=== PATIENT | female | born 1970 | race Caucasian/White ===

== ENCOUNTER 2017-02-01 21:14 | Emergency (ER) | payer OTHER ==
--- NOTE | ~2017-02-01 | CT2 ---
[facility] A Service [facility] RADIOLOGY TEXT RESULTS PATIENT: DAYANA WILLETT LOCATION: SED : 72 UNIT #: [id number] AGE: [address]: Patricio Stewart MD SEX: F ORDER DR: [id number] [address] [address] [id number] E MR#: [id number] Acc #: [id number] NAME: DAYANA WILLETT. : 1970 SEX: F STUDY DATE/TIME: 02/01/2017 22:11 UNIT: SED ROOM: STUDY DESCRIPTION: CT Abd and Pelv W Cont Attending Physician: Patricio Stewart M.D. Ordering Physician: Patricio Stewart M.D. Primary Care Physician: No Primary Care Physician MEDICAL IMAGING REPORT This report is preliminary unless electronic signature is present. EXAM CT abdomen and pelvis with contrast INDICATION Left flank and posterior lower left rib pain after a fall today. PROCEDURE Contrast-enhanced CT of the abdomen and pelvis. This CT exam was performed with one or more of the following radiation dose reduction techniques: Automatic exposure control, adjustment of mA and/or kV according to patient size, and iterative reconstruction. COMPARISON None. FINDINGS ABDOMEN WITH CONTRAST: The included lung bases are clear. The liver, spleen, kidneys, adrenal glands, pancreas, and gallbladder unremarkable. The bowel loops are nondilated. Moderately large colonic stool burden. Appendix is nondilated. Appendix is only partially seen. PELVIS WITH CONTRAST: No pelvic mass or fluid. No aggressive appearing bone lesion. IMPRESSION 1. No acute findings in the abdomen or pelvis. 2. Moderately large colonic stool burden. Dictated by... John Martinez M.D. [facility] A Service [facility] RADIOLOGY TEXT RESULTS PATIENT: DAYANA WILLETT LOCATION: SED : 71 UNIT #: [id number] AGE: [address]: Patricio Stewart MD SEX: F ORDER DR: THIS IS AN ELECTRONICALLY VERIFIED REPORT John E. Michelle, M.D. at 02/02/2017 10:28 PM HUNG/tenzin TD: 02/02/2017 08:10 JOB #: [id number] MEDICAL IMAGING REPORT Page 1 of 1
--- NOTE | ~2017-02-01 | CR71 ---
[facility] [place]. [facility] A Service of [facility] RADIOLOGY TEXT RESULTS PATIENT: DAYANA WILLETT LOCATION: SED : 71 UNIT #: [id number] AGE: [address]: Patricio Stewart MD SEX: F ORDER DR: [id number] [address] [address] [id number] E MR#: [id number] Acc #: [id number] NAME: DAYANA WILLETT : 1970 SEX: F STUDY DATE/TIME: 02/01/2017 22:51 UNIT: SED ROOM: STUDY DESCRIPTION: CR Chest Single View Attending Physician: Patricio Stewart M.D. Ordering Physician: Patricio Stewart M.D. Primary Care Physician: Primary Care Physician No MEDICAL IMAGING REPORT This report is preliminary unless electronic signature is present. EXAM Portable chest INDICATION Left flank and posterior chest pain after a fall tonight. PROCEDURE Frontal view of the chest COMPARISON 08/03/2014 FINDINGS Heart size is normal. No dense consolidation, pleural fluid or pneumothorax. IMPRESSION No active process. Dictated by... John Martinez M.D. THIS IS AN ELECTRONICALLY VERIFIED REPORT John Martinez M.D. at 02/02/2017 10:28 PM Primo TD: 02/02/2017 08:03 JOB #: [id number] MEDICAL IMAGING REPORT Page 1 of 1
[2017-02-01 22:11] LABS: BASOPHIL% 0.6 % (0-2.5); EOSINOPHIL# 0.1 X10e3 (0-0.7); HEMATOCRIT 39.7 % (35.0-45.0); HEMOGLOBIN 13.9 gm/dL (12.0-16.0); LYMPHOCYTE# 1.2 X10e3 (1.0-3.5); LYMPHOCYTE% 15.1 % (17.0-45.0); MEAN CELL VOLUME 85.3 FL (83-96); MEAN CORPUSCULAR HEMOGLOBIN 29.9 PG (28-34); MEAN CORPUSCULAR HGB CONC 35.1 g/dL (30-36); MEAN PLATELET VOLUME 7.1 FL (6.5-11.5); MONOCYTE# 0.8 X10e3 (0-1.0); MONOCYTE% 9.8 % (3.0-12.0); NEUTROPHIL# 5.9 X10e3 (1.5-7.1); NEUTROPHIL% 73.5 % (40-75); PLATELET COUNT 287 X10e3 (140-420); RED BLOOD COUNT 4.65 X10e (3.90-5.30); RED CELL DISTRIBUTION WIDTH 12.6 % (11.0-15.5)
[2017-02-01 22:13] LABS: DIFF IND NO
[2017-02-01 22:28] LABS: ALBUMIN SERUM 4.5 g/dL (3.5-5.0); BILIRUBIN, DIRECT 0.2 mg/dL (0.0-0.2); BILIRUBIN,INDIRECT 1.4 mg/dL (0.0-0.9); BILIRUBIN,TOTAL 1.6 mg/dL (0.2-2.0); BUN/CREATININE RATIO 25.71; CALCIUM SERUM 9.4 mg/dL (8.4-10.2); CREATININE SERUM 0.7 mg/dL (0.6-1.4); GLOM FILT RATE Estimated 103.9 mL/min (>60); POTASSIUM 3.8 mmol/L (3.5-5.1); PROTEIN TOTAL SERUM 7.1 g/dL (6.0-8.3)
[2017-02-01 23:18] LABS: URINE SOURCE CLEAN CATCH
[2017-02-01 23:20] LABS: URINE APPEARANCE CLEAR; URINE BILIRUBIN NEG (NEG); URINE BLOOD NEG (NEG); URINE COLOR YELLOW; URINE GLUCOSE NEG (NORM); URINE KETONE 1+ (NEG); URINE LEUKOCYTE ESTERASE NEG (NEG); URINE NITRATE NEG (NEG); URINE PH 7.5 (5-8); URINE PROTEIN NEG (NEG); URINE UROBILINOGEN 0.2 MG/DL (NORM)
[2017-02-01 23:25] LABS: MICRO INDICATED? NO
== END 2017-02-02 00:18 | disposition home or self-care (01) ==
LOC: SED 21:14
PROVIDERS: Emergency Medicine
DX: S39.012A Strain of muscle, fascia and tendon of lower back, initial encounter (principal); S20.212A Contusion of left front wall of thorax, initial encounter; K58.9 Irritable bowel syndrome, unspecified; W18.2XXA Fall in (into) shower or empty bathtub, initial encounter; Y92.009 Unspecified place in unspecified non-institutional (private) residence as the place of occurrence of the external cause
CPT/HCPCS: 36415; 71010; 74177; 80048; 80076; 81003; 84703; 85025; 96374; 96375; 99284; J1885; J2270; J2405; Q9967